=== PATIENT | male | born 1975 | race Caucasian/White ===

== ENCOUNTER 2017-01-08 20:30 | Outpatient (CLI) | payer OTHER | END 2017-01-08 20:31 | disposition home or self-care (01) | LOC: SLEEPLAB 20:30 | PROVIDERS: ATTEND Family Medicine | DX: G47.33 Obstructive sleep apnea (adult) (pediatric) (principal); R53.83 Other fatigue; R06.83 Snoring | CPT/HCPCS: 95810 ==

== ENCOUNTER 2017-02-26 19:30 | Outpatient (CLI) | payer OTHER | END 2017-02-26 19:31 | disposition home or self-care (01) | LOC: SLEEPLAB 19:30 | PROVIDERS: ATTEND Family Medicine | DX: G47.33 Obstructive sleep apnea (adult) (pediatric) (principal); R53.83 Other fatigue; R06.83 Snoring; G47.9 Sleep disorder, unspecified | CPT/HCPCS: 95811 ==

== ENCOUNTER 2017-04-16 13:56 | Emergency (ER) | payer OTHER ==
[2017-04-16] MEDS ORDERED: Ondansetron ODT 4 MG TAB ONE (15:01)
[2017-04-16 15:26] LABS: Bilirubin Small (Negative); Blood, Urine Negative (Negative); Clarity Hazy (Clear); Glucose, Urine (Dipstick) Negative (Negative); Leukocyte Negative (Negative); Nitrite Negative (Negative); Protein, Urine (Dipstick) 30 mg/dL (Neg-Trace)
--- NOTE | 2017-04-16 15:31 | RAD ---
CHEST TWO VIEWS: History: Cough. Comparison: None. FINDINGS: Two views of the chest. Normal cardiac silhouette. Pulmonary vessels and hilum are normal. Costophren ic angles are clear. No mass. No consolidation. No pneumothorax or osseous abnormality. IMPRESSION: No acute cardiopulmonary process. POS: [facility]
[2017-04-16 15:35] LABS: Bacteria/HPF 1+ HPF (None Seen); RBC/HPF None Seen HPF (0-3); Squamous Epithelial None Seen HPF (0-3); WBC/HPF None Seen HPF (0-3)
[2017-04-16] MEDS ORDERED: Acetaminophen 500 MG TAB ONE (15:58)
== END 2017-04-16 16:01 | disposition home or self-care (01) ==
LOC: SCSER 13:56
DX: B34.9 Viral infection, unspecified (principal); M47.9 Spondylosis, unspecified; M17.0 Bilateral primary osteoarthritis of knee; Z79.899 Other long term (current) drug therapy
CPT/HCPCS: 71046; 81003; 81015; Q0162

== ENCOUNTER 2018-05-16 15:02 | Emergency (ER) | payer OTHER | END 2018-05-16 15:45 | disposition home or self-care (01) | LOC: SCSER 15:02 | DX: J01.90 Acute sinusitis, unspecified (principal) | CPT/HCPCS: 99283 ==

== ENCOUNTER 2019-03-22 09:13 | Outpatient (CLI) | payer OTHER ==
--- NOTE | 2019-03-22 10:19 | RAD ---
Lumbar spine 6 views: 03/22/2019 COMPARISON: None HISTORY: Back pain radiating into the right hip, radiculopathy FINDINGS: The frontal imaging demonstrates 5 lumbar type vertebral bodies with intact pedicles within the lumbar spine. The oblique imaging demonstrates no evidence for a pars defect on either side at any level. Neutral lateral imaging demonstrates normal vertebral body height and alignment. No anterolisthesis o r retrolisthesis is noted on the flexion or extension views. No acute osseous abnormality. IMPRESSION: No acute findings. If there are radicular symptoms, MRI may be beneficial.
== END 2019-03-22 09:14 | disposition home or self-care (01) ==
LOC: SCSRAD 09:13
PROVIDERS: ATTEND Family Medicine
DX: M51.16 Intervertebral disc disorders with radiculopathy, lumbar region (principal); M54.5 Low back pain
CPT/HCPCS: 72100

== ENCOUNTER 2019-04-05 10:27 | Outpatient (CLI) | payer OTHER ==
--- NOTE | 2019-04-05 15:29 | MRI ---
MRI LUMBAR SPINE WITH AND WITHOUT CONTRAST: DATE: 04/05/2019 HISTORY: 43-year-old male with low back pain and right lumbar radiculopathy. COMPARISON: None. TECHNIQUE: Multiple sequences obtained in axial and sagittal planes, pre and post IV injection of gadolinium-bas ed contrast agent: 16 mL MultiHance. FINDINGS: There are five lumbar-type vertebrae. Vertebral body heights are maintained. Bone marrow signal is no rmal. No spondylolisthesis. No evidence of epidural abscess or neoplasm. T12-L1: Normal. L1-2: Normal. Conus medullaris terminates at this level. L2-3: Normal. L3-4: Normal. L4-5: Disc desiccation without significant disc space narrowing. Small to moderate sized central and bilateral paracentral focal disc herniation which indents the ventral aspect of the thecal sac and a buts the bilateral L5 nerve roots. No high grade central spinal canal stenosis. Small posterior epidu ral fat pad. The disc herniation results in at least mild thecal sac stenosis. No neural foraminal st enosis. L5-S1: Disc desiccation. Mild to moderate disc space narrowing. There is a somewhat large central an d right paracentral disc extrusion which significantly indents the thecal sac, and markedly displaces the right S1 nerve root posteriorly by a distance of at least 0.7 cm, against the right posterior sp inal canal wall. It also displaces the adjacent right S2 nerve root. The overall cross-sectional area of the thecal sac is decreased mild to moderately. Mild diffuse disc bulge. Mild bilateral neural fo raminal stenosis. Enhancing granulation tissue surrounds the right-sided disc extrusion. IMPRESSION: 1. Moderately large right-sided disc extrusion at L5-S1, significantly compressing the right S1 nerv e root. 2. Small to moderate size central disc herniation at L4-5. JN R POS: OFF
== END 2019-04-05 10:28 | disposition home or self-care (01) ==
LOC: BICMRI 10:27
PROVIDERS: ATTEND Family Medicine
DX: M51.16 Intervertebral disc disorders with radiculopathy, lumbar region (principal); M51.17 Intervertebral disc disorders with radiculopathy, lumbosacral region
CPT/HCPCS: 72158

== ENCOUNTER 2021-09-07 07:43 | Outpatient (CLI) | payer OTHER ==
[2021-09-07 09:04] LABS: #Eosinphils 0.1 10x3/uL (0.0-0.5); #Monocytes 0.5 10x3/uL (0.0-1.1); #Neutrophils 3.4 10x3/uL (1.5-8.4); %Basophils 0.5 % (0.0-2.0); %Eosinophils 1.8 % (0.0-6.0); %Monocytes 8.2 % (0.0-10.0); %Neutrophils 57.2 % (40.0-75.0); Hemoglobin 15.1 g/dL (13.5-17.5); Mean Corpuscular HGB CONC 34.6 g/dL (32.0-36.0); Mean Corpuscular Hemoglobin 29.2 pg (27.0-33.0); Mean Corpuscular Volume 84.2 fl (81.2-95.1); Mean Platelet Volume 8.8 fl (7.4-10.4); Platelet Count 200 10x3/uL (150-450); RBC Distribution Width 13.3 % (11.5-14.5); Red Blood Cell (RBC) Count 5.18 10x6/uL (4.32-5.72)
[2021-09-07 09:24] LABS: Anion Gap 17 mmol/L (10-20); BUN (Urea Nitrogen) 23 mg/dL (8.9-20.6); Calc. Creatinine Clearance 0 mL/min (70-130); Calcium 9.4 mg/dL (7.8-10.44); Carbon Dioxide 22 mmol/L (22-29); Chloride 106 mmol/L (98-107); Glucose 102 mg/dL (70-105); Potassium 4.2 mmol/L (3.5-5.1); Sodium 141 mmol/L (136-145)
== END 2021-09-07 07:44 | disposition home or self-care (01) ==
LOC: LABBT 07:43
PROVIDERS: ATTEND Specialist
DX: Z01.812 Encounter for preprocedural laboratory examination (principal); K40.90 Unilateral inguinal hernia, without obstruction or gangrene, not specified as recurrent; Z20.822 Contact with and (suspected) exposure to COVID-19
CPT/HCPCS: 80048; 85025; U0003; U0005

== ENCOUNTER 2021-09-12 11:13 | Day surgery (SDC) | payer OTHER ==
[2021-09-07 14:55] VITALS: BMI 27.9
[2021-09-12] MEDS ORDERED: Gabapentin 300 MG CAP ONE (12:28)
[2021-09-12] MEDS ORDERED: Ketorolac Tromethamine 30 MG/ML VIAL ONE (12:28)
[2021-09-12] MEDS ORDERED: Acetaminophen 500 MG TAB ONE (12:28)
[2021-09-12] MEDS ORDERED: SUGAMMADEX SODIUM 200 MG/2 ML VIAL ONE (14:31)
[2021-09-12] MEDS ORDERED: fentaNYL Citrate/PF 100 MCG/2 ML SYRINGE ONE (14:31)
[2021-09-12] MEDS ORDERED: Lidocaine 1% w/Epinephrine 1:100K 20 ML VIAL ONE (14:32)
[2021-09-12] MEDS ORDERED: Bupivacaine 0.25% HCL 30 ML VIAL ONE (14:32)
[2021-09-12] MEDS ORDERED: Sodium Chloride 0.9% 100 ML ONE (15:06)
[2021-09-12] MEDS ORDERED: cefOXitin 2 GM VIAL ONE (15:06)
[2021-09-12] MEDS ORDERED: HYDROmorphone 0.5 MG/0.5 ML SYRINGE ONE (15:10)
[2021-09-12] MEDS ORDERED: Ondansetron PF 4 MG/2 ML Vial ONE (17:34)
== END 2021-09-12 18:20 | disposition home or self-care (01) ==
LOC: SDC 11:13
PROVIDERS: ATTEND Specialist
PROC: 8E0W4CZ Robotic Assisted Procedure of Trunk Region, Percutaneous Endoscopic Approach (ICD-10-PCS; principal; 2021-09-12)
PROC: 0YU64JZ Supplement Left Inguinal Region with Synthetic Substitute, Percutaneous Endoscopic Approach (ICD-10-PCS; principal; 2021-09-12)
DX: K40.90 Unilateral inguinal hernia, without obstruction or gangrene, not specified as recurrent (principal); J30.2 Other seasonal allergic rhinitis
CPT/HCPCS: C1781; J0694; J1170; J1885; J2405; J3490; S0020